=== PATIENT | male | born 1940 ===

== ENCOUNTER 2017-07-28 15:56 | Emergency (ER) | payer MEDICARE, BC ==
[2017-07-28 16:13] VITALS: BP 171/93
--- NOTE | 2017-07-28 16:22 | UC ---
Headache HPI - HPI Summary HPI Summary: Patient came to urgent care today with his . Patient reports having the worst headache of his life began about 11:00 this afternoon. He felt nauseated after the headache began he went home and rested for little while he came to the urgent care when the headache did not resolve. He did not have any chest pain or shortness of breath. He does not have any neurological deficits on assessment. - History Of Current Complaint Chief Complaint: UCHeadache Stated Complaint: NAUSEA, HEADACHE, ARM NUMB Time Seen by Provider: 07/28/17 16:12 Hx Obtained From: Patient Onset/Duration: Sudden Onset Onset Of Symptoms: Sudden Initially Headache Was: "Worst Headache Ever" Pain Intensity: 9 Pain Scale Used: 0-10 Numeric Timing: Constant Character: Sharp, Pressure Location of Headache: Diffuse Aggravating Factor(s): Nothing Allevating Factor(s): Nothing Associated Signs And Symptoms: Positive: Nausea - Allergies/Home Medications Allergies/Adverse Reactions: Allergies Allergy/AdvReac Type Severity Reaction Status Date / Time MS Atorvastatin Allergy Unknown Verified 07/28/17 16:13 [From Lipitor] Reaction Details MS Codeine [Codeine] Allergy Unknown Verified 07/28/17 16:13 Reaction Details MS Shellfish-derived Products Allergy Unknown Verified 07/28/17 16:13 [Shellfish-derived Products] Reaction Details Home Medications: Home Medications Glipizide/Metformin HCl [Glipizide-Metformin 2.5-250 mg] 1 tab PO BID 07/28/17 [ History Confirmed 07/28/17] PMH/Surg Hx/FS Hx/Imm Hx Previously Healthy: No Endocrine History: Diabetes, Dyslipidemia Cardiovascular History: Cardiac Disease GI/ History: Gastroesophageal Reflux - Surgical History Surgical History: None - Family History Known Family History: Positive: None - Social History Occupation: Retired Lives: With Family Alcohol Use: None Substance Use Type: None Smoking Status (MU): Former Smoker Review of Systems Constitutional: Negative Skin: Negative Eyes: Negative ENT: Negative Respiratory: Negative Cardiovascular: Negative Gastrointestinal: Negative Genitourinary: Negative Motor: Negative Neurovascular: Negative Musculoskeletal: Negative Neurological: Headache Psychological: Negative Is Patient Immunocompromised?: No - her All Other Systems Reviewed And Are Negative: Yes Physical Exam Triage Information Reviewed: Yes Appearance: Well-Appearing, Well-Nourished, Pain Distress - mild Vital Signs: Initial Vital Signs Temp 96.1 F 07/28/17 16:10 Pulse 101 07/28/17 16:10 Resp 20 07/28/17 16:10 BP 171/93 07/28/17 16:10 Pulse Ox 95 07/28/17 16:10 Vital Signs Reviewed: Yes Eye Exam: Normal Eyes: Positive: Conjunctiva Clear ENT Exam: Normal ENT: Positive: Normal ENT inspection, Hearing grossly normal. Negative: Nasal congestion, Nasal drainage, Trismus, Muffled voice, Hoarse voice, Dental tenderness, Sinus tenderness Dental Exam: Normal Neck exam: Normal Neck: Positive: Supple, Nontender, No Lymphadenopathy Respiratory Exam: Normal Respiratory: Positive: Chest non-tender, Lungs clear, Normal breath sounds, No respiratory distress, No accessory muscle use Cardiovascular Exam: Normal Cardiovascular: Positive: RRR, No Murmur, Pulses Normal, Brisk Capillary Refill Abdominal Exam: Normal Abdomen Description: Positive: Nontender, No Organomegaly, Soft Musculoskeletal Exam: Normal Musculoskeletal: Positive: Strength Intact, ROM Intact, No Edema Neurological Exam: Normal Neurological: Positive: Alert, Muscle Tone Normal Psychological Exam: Normal Psychological: Positive: Normal Response To Family Skin Exam: Normal Diagnostics - EKG Cardiac Rate: NL Cardiac Rhythm: Sinus: Normal Ectopy: None ST Segment: Normal Headache Course/Dx - Course Course Of Treatment: Patient refuses ambulance transport to the hospital patient is agreeable to the hospital with driving. Patient discharged AMA from urgent care to go directly to [facility] emergency department for further treatment - Differential Dx/Diagnosis Provider Diagnoses: headache, hypertension in poor control - Physician Notifications Discussed Patient Care With: Rodney Mendoza Time Discussed With Above Provider: 16:15 Discharge - Sign-Out/Discharge Documenting (check all that apply): Discharge - Discharge Plan Condition: Guarded Disposition: AGAINST MEDICAL ADVICE Referrals: Yoko Lujan MD [Primary Care Provider] - - Billing Disposition and Condition Condition: GUARDED Disposition: AMA
== END 2017-07-28 16:20 | disposition left against medical advice (07) ==
LOC: UCEAST 15:56
DX: R51 Headache (principal); I10 Essential (primary) hypertension; R11.0 Nausea; E11.9 Type 2 diabetes mellitus without complications; Z79.84 Long term (current) use of oral hypoglycemic drugs; I25.10 Atherosclerotic heart disease of native coronary artery without angina pectoris; E78.5 Hyperlipidemia, unspecified; K21.9 Gastro-esophageal reflux disease without esophagitis; Z88.5 Allergy status to narcotic agent; Z88.0 Allergy status to penicillin; Z87.891 Personal history of nicotine dependence
CPT/HCPCS: 93005; 99201; G0463

== ENCOUNTER 2017-07-28 16:41 | Emergency (ER) | payer MEDICARE, BC ==
--- NOTE | 2017-07-28 18:15 | RAD ---
Indication: Headache. Comparison: No relevant prior exams available on the [facility] for comparison. Technique: Noncontrast CT vertex of skull through foramen magnum. Report: The sulci, ventricles, and basal cisterns are normal for age. Eddy matter white matter differentiation is preserved without evidence for edema. No intra or extra axial hemorrhage, mass, or fluid collection detected. Unremarkable visualized orbital contents. Unremarkable calvarium and skull base. Unremarkable scalp. The visualized paranasal sinuses and mastoid air spaces are clear. IMPRESSION: Unremarkable unenhanced head CT for age.
[2017-07-28 18:21] LABS: ABS Basophils 0 10^3/ul (0-0.2); ABS Eosinophils 0.2 10^3/ul (0-0.6); ABS Lymphocytes 1.2 10^3/ul (1.0-4.8); ABS Monocytes 0.7 10^3/ul (0-0.8); ABS Neutrophils 4.1 10^3/ul (1.5-7.7); ABS Nucleated RBC 0 10^3/ul; Eosinophil % 2.4 % (0-6); Hematocrit 45 % (42-52); Hemoglobin 15.8 g/dl (14.0-18.0); Lymphocyte % 19.3 % (25-47); Mean Corpuscular HGB Conc 35 g/dl (31-36); Mean Corpuscular Hemoglobin 31 pg (27-31); Mean Corpuscular Volume 89 fL (80-94); Mean Platelet Volume 8.7 um3 (7.4-10.4); Nucleated Red Blood Cells % 0.1; Platelet Count 158 10^3/ul (150-450); Red Blood Count 5.05 10^6/ul (4.0-5.4); Red Cell Distribution Width 13 % (10.5-15); White Blood Count 6.2 10^3/ul (3.5-10.8)
[2017-07-28 18:24] LABS: INR 0.9 (0.77-1.02)
[2017-07-28 20:06] VITALS: BP 153/79
--- NOTE | 2017-07-28 21:21 | ED ---
Sagrario Alicea Thomas, scribed for Rishi Kennedy MD on 07/28/17 at 1923 . Headache - HPI Summary HPI Summary: The patient is a 77 year old male presenting with a severe headache that began today at 12:00. The pain is concentrated behind his eyes. He treated the pain with Naproxen at 13:30 to no relief of pain. He also complains of bilateral axillary pain. He denies photophobia, vision problems, and nausea. - History Of Current Complaint Chief Complaint: EDChestPainROMI Stated Complaint: HEADACHE-SENT FROM Time Seen by Provider: 07/28/17 17:10 Hx Obtained From: Patient Onset/Duration: Started hours ago, Still Present Currently Pain Is: Severe Timing: Constant Location of Headache: Other: - behind eyes Aggravating Factor: Nothing Allevating Factors: Nothing Associated Signs And Symptoms: Other (Noted In Comments) - Bilateral axillary pain; NEGATIVE: photophobia, vision problems, nausea - Allergies/Home Medications Allergies/Adverse Reactions: Allergies Allergy/AdvReac Type Severity Reaction Status Date / Time atorvastatin Allergy Unknown Verified 07/28/17 16:46 Reaction Details codeine Allergy Unknown Verified 07/28/17 16:46 Reaction Details shellfish derived Allergy Unknown Verified 07/28/17 16:46 Reaction Details Home Medications: Home Medications Albuterol HFA INHALER* [Ventolin HFA Inhaler*] 2 puff INH Q4H PRN 07/28/17 [ History Confirmed 07/28/17] Metoprolol Succinate XL TAB* [Toprol XL TAB*] 50 mg PO DAILY 07/28/17 [History Confirmed 07/28/17] Omeprazole CAP* [Prilosec CAP* 20 MG] 20 mg PO DAILY 07/28/17 [History Confirmed 07/28/17] Pravastatin (NF) [Pravachol (NF)] 20 mg PO DAILY 07/28/17 [History Confirmed ] Ranitidine TAB (NF) [Zantac TAB (NF)] 150 mg PO DAILY PRN 07/28/17 [History Confirmed 07/28/17] PMH/Surg Hx/FS Hx/Imm Hx Endocrine/Hematology History: Reports: Hx Diabetes - pre diabetic Denies: Hx Thyroid Disease Cardiovascular History: Reports: Hx Hypertension Respiratory History: Denies: Hx Asthma, Hx Chronic Obstructive Pulmonary Disease (COPD) GI History: Denies: Hx Ulcer Comment Only: Other GI Disorders - INTESTINAL BLOACKAGE Infectious Disease History: No Infectious Disease History: Denies: Hx Hepatitis, Hx Human Immunodeficiency Virus (HIV), Traveled Outside the [place] in Last 30 Days - Family History Known Family History: Positive: Cardiac Disease - Social History Alcohol Use: None Substance Use Type: Reports: None Smoking Status (MU): Former Smoker Review of Systems Eyes: Negative - vision changes Negative: Photophobia Negative: Nausea Positive: Other - Bilateral axillary pain Positive: Headache All Other Systems Reviewed And Are Negative: Yes Physical Exam - Summary Physical Exam Summary: Appearance: The patient is well-nourished in no acute distress and in no acute pain. Skin: The skin is warm and dry and skin color reflects adequate perfusion. HEENT: The head is normocephalic and atraumatic. The pupils are equal and reactive. The conjunctivae are clear and without drainage. Nares are patent and without drainage. Mouth reveals moist mucous membranes and the throat is without erythema and exudate. The external ears are intact. The ear canals are patent and without drainage. The tympanic membranes are intact. Neck: the neck is supple with full range of motion and non-tender. There are no carotid bruits. There is no neck vein distension. Respiratory: Chest is non-tender. Lungs are clear to auscultation and breath sounds are symmetrical and equal. Cardiovascular: Heart is regular rate and rhythm. There is no murmur or rub auscultated. There is no peripheral edema and pulses are symmetrical and equal. Abdomen: The abdomen is soft and non-tender. There are normal bowel sounds heard in all four quadrants and there is no organomegaly palpated. Musculoskeletal: There is no back tenderness noted. Extremities are non-tender with full range of motion. There is good capillary refill. There is no peripheral edema or calf tenderness elicited. Neurological: Patient is alert and oriented to person, place and time. The patient has symmetrical motor strength in all four extremities. Cranial nerves are grossly intact. Deep tendon reflexes are symmetrical and equal in all four extremities. Psychiatric: The patient has an appropriate affect and does not exhibit any anxiety or depression. Triage Information Reviewed: Yes Vital Signs On Initial Exam: Initial Vitals Temp Pulse Resp BP Pulse Ox 97.7 F 65 16 153/88 94 07/28/17 16:48 07/28/17 16:48 07/28/17 16:48 07/28/17 16:48 07/28/17 16:48 Vital Signs Reviewed: Yes Diagnostics - Vital Signs Vital Signs Temp Pulse Resp BP Pulse Ox 07/28/17 16:48 97.7 F 65 16 153/88 94 - Laboratory Lab Results: Lab Results 07/28/17 07/28/17 07/28/17 Range/Units 18:02 18:02 18:02 WBC 6.2 (3.5-10.8) 10^3/ul RBC 5.05 (4.0-5.4) 10^6/ul Hgb 15.8 (14.0-18.0) g/dl Hct 45 (42-52) % MCV 89 (80-94) fL MCH 31 (27-31) pg MCHC 35 (31-36) g/dl RDW 13 (10.5-15) % Plt Count 158 (150-450) 10^3/ul MPV 8.7 (7.4-10.4) um3 Neut % (Auto) 66.2 (38-83) % Lymph % (Auto) 19.3 L (25-47) % [place] % (Auto) 11.3 H (0-7) % Eos % (Auto) 2.4 (0-6) % Baso % (Auto) 0.8 (0-2) % Absolute Neuts (auto) 4.1 (1.5-7.7) 10^3/ul Absolute Lymphs (auto) 1.2 (1.0-4.8) 10^3/ul Absolute Monos (auto) 0.7 (0-0.8) 10^3/ul Absolute Eos (auto) 0.2 (0-0.6) 10^3/ul Absolute Basos (auto) 0 (0-0.2) 10^3/ul Absolute Nucleated RBC 0 10^3/ul Nucleated RBC % 0.1 INR (Anticoag Therapy) 0.90 (0.77-1.02) Lactic Acid 2.4 H* (0.5-2.0) mmol/L Result Diagrams: 07/28/17 18:02 07/28/17 18:02 Lab Statement: Any lab studies that have been ordered have been reviewed, and results considered in the medical decision making process. - CT CT Brain CT Interpretation: No Acute Changes - IMPRESSION: Unremarkable unenhanced head CT for age. Dr. Kennedy has reviewed this report. CT Interpretation Completed By: Radiologist Headache Course/Dx - Course Course Of Treatment: Mr. Munoz was at a store about noon and was being bothered by the chemical smells. He began to develop a bilateral frontal LIN that continued to get worse and worse. He described it as throbbing and C/O'd nausea. No Photophobia. He got rapidly better here in the ED without treatment. His Initial CT was negative as were labs and we discussed LP in the context of worst LIN of his life. He didn't want the test and felt strongly that is was the smells as he has had a problem with smells his whole life. I recommended he F/U with his PMD this coming week. - Diagnoses Provider Diagnoses: Headache Discharge - Sign-Out/Discharge Documenting (check all that apply): Discharge - Discharge Plan Condition: Stable Disposition: HOME Patient Education Materials: General Headache (ED) Referrals: Yoko Lujan MD [Primary Care Provider] - 3 Days Additional Instructions: Follow up with your primary care physician in three days. Return to the emergency department for any new or worsening symptoms. - Billing Disposition and Condition Condition: STABLE Disposition: HOME The documentation as recorded by the Sagrario frazier Thomas accurately reflects the service I personally performed and the decisions made by me, Rishi Kennedy MD.
== END 2017-07-28 20:06 | disposition home or self-care (01) ==
LOC: ED 16:41
DX: R51 Headache (principal); R73.03 Prediabetes; I10 Essential (primary) hypertension; Z87.891 Personal history of nicotine dependence
CPT/HCPCS: 36415; 70450; 80053; 83605; 84484; 85025; 85610; 99283

== ENCOUNTER 2018-07-16 08:01 | Day surgery (SDC) | payer MEDICARE, BC ==
[~2018-07-16 08:01] MED LIST: Buffered Lidocaine 1% SYRIN* 1 ML/SYRINGE INTRADERM ONE
[2018-07-16] MEDS ORDERED: Midazolam* 1 MG/ML 2 ML VIAL (2 MG) ONE (09:30)
[2018-07-16 10:05] VITALS: BP 124/76
--- NOTE | 2018-07-16 11:00 | OP ---
DATE OF OPERATION: 07/16/2018 - [facility] DATE OF : 1940. SURGEON: Parish Galvan MD ANESTHESIA: Monitored anesthesia care. PREOPERATIVE DIAGNOSIS: Cataract, right eye. POSTOPERATIVE DIAGNOSIS: Cataract, right eye. OPERATIVE PROCEDURE: Extracapsular cataract extraction of the right eye with intraocular lens implant. IMPLANT: SN60WF 21.5 diopter lens to the right eye. COMPLICATIONS: None. DESCRIPTION OF PROCEDURE: The patient was given phenylephrine 2.5 % and cyclopentolate 1% eye drops to the operative eye in the preoperative area. The patient was taken to the operating room where a time-out was taken to identify the correct patient, site, and side of surgery. The patient's right eye was prepped and draped in the usual sterile fashion with 5% Betadine. A second time- out was taken to verify the correct patient, side, and site of surgery, as well as the correct lens implant. A lid speculum was placed to the right eye. A 1mm paracentesis blade was used to make a clear corneal incision. Preservative-free 1% lidocaine was injected into the anterior chamber. DisCoVisc was then injected into the anterior chamber. A 2.75 mm keratome blade was used to make a triplanar incision. A cystotome initiated a capsulorrhexis, which was completed with Utrata forceps in a continuous and curvilinear manner. Hydrodissection of the lens was performed with BSS on a cannula. The lens could be spun in a capsular bag. The phacoemulsification handpiece was used with a divide-and- conquer technique to remove the nucleus. The I/A handpiece then removed the residual cortical lens material. DisCoVisc was injected to inflate the capsular bag. The planned SN60WF 21.5 diopter lens was injected into the capsular bag. The residual DisCoVisc was removed from the eye with the I/A handpiece. The corneal incisions were hydrated and no leaks occurred at physiologic pressure around 20 mmHg per palpation. The lid speculum was removed and drapes were removed. Maxitrol ointment was placed to the surface of the operative eye. An adhesive patch and shield was then placed on the operative eye. The patient was taken to the postoperative area in stable condition. [id number]/[facility] #: [id number] [facility]
[2018-07-16] MEDS ORDERED: Tropicamide 1% OPTH.SOL* BTL ONE (13:36)
[2018-07-16] MEDS ORDERED: Cyclopentolate 1% OPTH.SOL* 2 ML BTL ONE (13:36)
[2018-07-16] MEDS ORDERED: acetaZOLAMIDE TAB* 250 MG ONE (13:36)
[2018-07-16] MEDS ORDERED: Ketorolac 0.5% OPHTH (NF) 0.5 % 5 ML BTL ONE (13:36)
[2018-07-16] MEDS ORDERED: Neomycin/Polymy/Dex OPHTH.OIN* 3.5 GM ONE (13:36)
[2018-07-16] MEDS ORDERED: Phenylephrine OPHTH SOL 2.5%* 2 ML ONE (13:36)
[2018-07-16] MEDS ORDERED: Povidone Iodine 5% OPTH* 30 ML BTL ONE (13:36)
[2018-07-16] MEDS ORDERED: Tetracaine 0.5% OPTH.SOL 4 ML* 1 DROP BTL ONE (13:36)
[2018-07-16] MEDS ORDERED: Lidocaine 1%* 5 ML VIAL ONE (13:36)
== END 2018-07-16 10:14 | disposition home or self-care (01) ==
LOC: OREAST 08:01
PROVIDERS: ATTEND Student in an Organized Health Care Education/Training Program
DX: H25.11 Age-related nuclear cataract, right eye (principal); H35.3132 Nonexudative age-related macular degeneration, bilateral, intermediate dry stage; Z85.828 Personal history of other malignant neoplasm of skin; I25.10 Atherosclerotic heart disease of native coronary artery without angina pectoris; I25.2 Old myocardial infarction; Z95.5 Presence of coronary angioplasty implant and graft; E11.9 Type 2 diabetes mellitus without complications
CPT/HCPCS: A9270-GY; J2250; V2632

== ENCOUNTER 2022-10-09 14:04 | Inpatient (IN) ==
[2022-10-09] MEDS ORDERED: Levalbuterol 1.25MG/0.5ML NEB.SOL INH ONE (14:22)
[2022-10-09] MEDS ORDERED: methylPREDNISolone SOD SUCC 125 mg 2 ML VIAL IV ONE (14:23)
[2022-10-09 14:49] LABS: ABS Lymphocytes 0.6 10^3/uL (1.0-4.8); ABS Monocytes 0.7 10^3/uL (0.0-1.1); ABS Neutrophils 3.9 10^3/uL (1.5-7.6); ABS Nucleated RBC 0.01 10^3/ul; Eosinophil % 0.6 %; Hematocrit 44.3 % (38-53); Hemoglobin 15.5 g/dL (13.2-16.3); Lymphocyte % 10.7 %; Mean Corpuscular Hemoglobin 31.2 pg (27-33); Mean Corpuscular Volume 89.1 fL (80-97); Mean Platelet Volume 8.6 fL (7.5-11.2); Nucleated Red Blood Cells % 0.2 /100 WBC (0.0-0.4); Platelet Count 135 10^3/uL (150-450); Red Blood Count 4.97 10^6/uL (4.06-5.63); Red Cell Distribution Width 13.7 % (12-17); White Blood Count 5.2 10^3/uL (3.6-10.2)
[2022-10-09 15:04] LABS: Albumin 3.7 g/dL (3.2-5.2); Albumin/Globulin Ratio 1.4 (1-3); Calcium 8.6 mg/dL (8.6-10.3); Creatinine, Serum 1.23 mg/dL (0.67-1.17); Globulin 2.6 g/dL (2-4); Magnesium 1.7 mg/dL (1.9-2.7); Potassium 3.9 mmol/L (3.5-5.0); Total Bilirubin 0.8 mg/dL (0.2-1.0); Total Protein 6.3 g/dL (6.4-8.9); eGFR CKD-EPI 59.3 (>60)
[2022-10-09 15:09] LABS: INR 1.18 (0.88-1.18)
[2022-10-09] MEDS ORDERED: NS 0.9% 1000 ml BAG 1,000 ML IV ONE (16:01)
[2022-10-09] MEDS ORDERED: Iodixanol (CONTRAST) 320 MG/ML 100 ML SDV IV ONE ×2 (16:07→16:58)
[2022-10-09 16:19] LABS: High Sensitivity Troponin 1 Hr 18 pg/mL (<20)
[2022-10-09] MEDS ORDERED: Remdesivir 100 mg Vial 200 MG in NS 0.9% 250 ml 210 ML IV ONE (17:30)
[2022-10-09 18:08] LABS: Venous Bicarbonate HCO3 26.4 mmol/L (24-28)
[2022-10-09] MEDS ORDERED: Albuterol HFA INHALER 8 gm MDI INH PRN (18:13)
[2022-10-09] MEDS ORDERED: Ondansetron 4 mg VIAL 2 MG/ML 2 ml VIAL IV PRN (18:21)
[2022-10-09] MEDS ORDERED: Polyethylene Glycol 3350 17 GM PACKET PO PRN (18:21)
[2022-10-09 18:24] LABS: Albumin 3.7 g/dL (3.2-5.2); Calcium 8.5 mg/dL (8.6-10.3); Creatinine, Serum 1.32 mg/dL (0.67-1.17); Potassium 4.4 mmol/L (3.5-5.0); Total Protein 6.4 g/dL (6.4-8.9); eGFR CKD-EPI 54.5 (>60)
[2022-10-09 18:25] LABS: Albumin/Globulin Ratio 1.4 (1-3); Globulin 2.7 g/dL (2-4); Total Bilirubin 0.8 mg/dL (0.2-1.0)
[2022-10-09] MEDS ORDERED: Dextrose 50% Syringe 50 ml 25 GM/50 ML SYRINGE IV PUSH PRN (18:35)
[2022-10-09] MEDS ORDERED: Insulin GLARGINE 100 un/ml 10 ml VIAL SUBCUT SCH (21:00)
[2022-10-09] MEDS: CMCS: Pravastatin 20 mg TAB (NF) PO SCH (21:50)
[2022-10-09] MEDS: Vitamin THERAPEUTIC TAB PO SCH (21:58)
[2022-10-09] MEDS: Enoxaparin 40 MG/0.4 ML SYR SUBCUT SCH (21:58)
[2022-10-10] MEDS: NF: Multivitamins/Mins AREDS2 (NF) CAP PO SCH ×3 (00:29→23:04)
[2022-10-10 07:06] LABS: ABS Lymphocytes 0.5 10^3/uL (1.0-4.8); ABS Monocytes 0.5 10^3/uL (0.0-1.1); ABS Neutrophils 4.5 10^3/uL (1.5-7.6); ABS Nucleated RBC 0.01 10^3/ul; Hematocrit 42.8 % (38-53); Hemoglobin 15.2 g/dL (13.2-16.3); Lymphocyte % 9.7 %; Mean Corpuscular Hemoglobin 31.2 pg (27-33); Mean Corpuscular Hgb Conc 35.6 g/dL (31-36); Mean Corpuscular Volume 87.5 fL (80-97); Mean Platelet Volume 8.6 fL (7.5-11.2); Nucleated Red Blood Cells % 0.1 /100 WBC (0.0-0.4); Platelet Count 139 10^3/uL (150-450); Red Blood Count 4.89 10^6/uL (4.06-5.63); Red Cell Distribution Width 13.6 % (12-17); White Blood Count 5.6 10^3/uL (3.6-10.2)
[2022-10-10 07:08] LABS: INR 1.14 (0.88-1.18)
[2022-10-10 07:20] LABS: Albumin 3.5 g/dL (3.2-5.2); Albumin/Globulin Ratio 1.4 (1-3); Calcium 8.7 mg/dL (8.6-10.3); Creatinine, Serum 1.18 mg/dL (0.67-1.17); Globulin 2.5 g/dL (2-4); Phosphorus 2.2 mg/dL (2.5-5.0); Total Bilirubin 0.5 mg/dL (0.2-1.0); eGFR CKD-EPI 62.4 (>60)
[2022-10-10] MEDS ORDERED: Potassium & Sodium Phos 250 mg = 1 PACKET PO ONE (07:56)
[2022-10-10] MEDS: Aspirin EC 81 mg TAB.EC (enteric coated) PO SCH (10:17)
[2022-10-10] MEDS ORDERED: Remdesivir 100 mg Vial 100 MG in NS 0.9% 250 ml 230 ML IV SCH (21:00)
[2022-10-10] MEDS ORDERED: Insulin GLARGINE 100 un/ml 10 ml VIAL SUBCUT SCH (21:00)
[2022-10-10] MEDS: CMCS: Pravastatin 20 mg TAB (NF) PO SCH (23:03)
[2022-10-10] MEDS: Enoxaparin 40 MG/0.4 ML SYR SUBCUT SCH (23:04)
[2022-10-10] MEDS: Vitamin THERAPEUTIC TAB PO SCH (23:04)
[2022-10-11 07:06] LABS: INR 1.15 (0.88-1.18)
[2022-10-11 07:11] LABS: ABS Lymphocytes 0.8 10^3/uL (1.0-4.8); ABS Monocytes 0.6 10^3/uL (0.0-1.1); ABS Neutrophils 7.5 10^3/uL (1.5-7.6); ABS Nucleated RBC 0.02 10^3/ul; Eosinophil % 0.1 %; Hematocrit 41.4 % (38-53); Hemoglobin 14.7 g/dL (13.2-16.3); Lymphocyte % 8.7 %; Mean Corpuscular Hemoglobin 30.8 pg (27-33); Mean Corpuscular Hgb Conc 35.4 g/dL (31-36); Mean Platelet Volume 9.4 fL (7.5-11.2); Nucleated Red Blood Cells % 0.2 /100 WBC (0.0-0.4); Platelet Count 168 10^3/uL (150-450); Red Blood Count 4.76 10^6/uL (4.06-5.63); Red Cell Distribution Width 13.4 % (12-17); White Blood Count 8.8 10^3/uL (3.6-10.2)
[2022-10-11 07:17] LABS: Albumin 3.5 g/dL (3.2-5.2); Albumin/Globulin Ratio 1.5 (1-3); Calcium 8.6 mg/dL (8.6-10.3); Creatinine, Serum 1.16 mg/dL (0.67-1.17); Globulin 2.4 g/dL (2-4); Phosphorus 2.9 mg/dL (2.5-5.0); Potassium 3.9 mmol/L (3.5-5.0); Total Bilirubin 0.5 mg/dL (0.2-1.0); Total Protein 5.9 g/dL (6.4-8.9); eGFR CKD-EPI 63.7 (>60)
[2022-10-11] MEDS: NF: Multivitamins/Mins AREDS2 (NF) CAP PO SCH (08:24)
[2022-10-11] MEDS: Aspirin EC 81 mg TAB.EC (enteric coated) PO SCH (08:24)
[2022-10-11 10:36] VITALS: BP 129/77
== END 2022-10-11 13:15 | disposition home or self-care (01) | DRG 177 ==
LOC: ED 14:04 → SUATTDRO 18:04 → EDHOLD 18:04 → MED 20:20
PROVIDERS: ADMIT Internal Medicine; ATTEND Internal Medicine